=== PATIENT | female | born 1960 | race Caucasian/White ===

== ENCOUNTER → 2017-05-04 | Outpatient (CLI) | payer BC ==
[~2017-05-04] MED LIST: ARIMIDEX1 MG PO; CLARITIN10 M2 PO; FLAX SEED OIL1000 M1 PO; KELP1 TAB PO; MSM500 MG PO; NEXIUM PO; VITAMIN B122500 MCG
--- NOTE | ~2017-05-04 | US6 ---
[facility] A Service of [facility] & [facility] RADIOLOGY TEXT RESULTS PATIENT: FARZAD MCCLELLAN LOCATION: [facility] : 60 UNIT #: [id number] AGE: [address]: Jose Miguel sOorio MD SEX: F ORDER DR: [id number] [place], [place] [address] [id number] O MR#: [id number] Acc #: [id number] NAME: FARZAD MCCLELLAN : 1960 SEX: F STUDY DATE/TIME: 05/04/2017 10:42 UNIT: [facility] ROOM: STUDY DESCRIPTION: US Abdominal Limited Attending Physician: Jose Miguel Osorio M.D. Referring Physician: Jose Miguel Osorio M.D. Ordering Physician: Jose Miguel Osorio M.D. Primary Care Physician: Shayy Pedro M.D. MEDICAL IMAGING REPORT This report is preliminary unless electronic signature is present EXAM Right upper quadrant ultrasound, 05/04/2017 HISTORY Right upper quadrant abdominal pain intermittently for 2 months. FINDINGS The liver demonstrates an increase in echotexture with attenuation of the ultrasound beam characteristic of fatty infiltration. Focal fatty sparing is seen within the left lobe which is unchanged compared with 08/31/2016. The intra and extrahepatic bile ducts are not dilated. The gallbladder contains minimal sludge but there is no evidence of cholelithiasis, wall thickening or pericholecystic fluid. The common duct measures 3 mm. The pancreas and right kidney are normal. IMPRESSION 1. Fatty infiltration of the liver with focal fatty sparing in the left hepatic lobe unchanged compared with 08/31/2016. 2. Minimal gallbladder sludge. No evidence of cholelithiasis. Dictated by... Sampson Cervantes M.D. THIS IS AN ELECTRONICALLY VERIFIED REPORT Sampson Cervantes M.D. at 05/05/2017 2:18 PM GRACIELA/aditi TD: 05/04/2017 23:09 JOB #: [id number] MEDICAL IMAGING REPORT [facility] A Service of [facility] & [facility] RADIOLOGY TEXT RESULTS PATIENT: FARZAD MCCLELLAN LOCATION: [facility] #: [id number] : 60 UNIT #: [id number] AGE: [address]: Jose Miguel Osorio MD SEX: F ORDER DR: Page 1 of 1 COPY
[2017-05-04 10:31] LABS: HEMATOCRIT 40.3 % (35.0-45.0); HEMOGLOBIN 13.7 gm/dL (12.0-16.0); MEAN CELL VOLUME 84.9 FL (83-96); MEAN CORPUSCULAR HEMOGLOBIN 28.8 PG (28-34); MEAN CORPUSCULAR HGB CONC 33.9 g/dL (30-36); MEAN PLATELET VOLUME 8.9 FL (6.5-11.5); RED BLOOD COUNT 4.75 X10e (3.90-5.30); RED CELL DISTRIBUTION WIDTH 13.9 % (11.0-15.5); WHITE BLOOD COUNT 7.6 X10e3 (4.0-10.5)
[2017-05-04 10:49] LABS: ALBUMIN SERUM 4.1 g/dL (3.5-5.0); BILIRUBIN,TOTAL 0.9 mg/dL (0.2-2.0); BUN/CREATININE RATIO 13.33; CALCIUM SERUM 9.1 mg/dL (8.4-10.2); CREATININE SERUM 0.9 mg/dL (0.6-1.4); GLOM FILT RATE Estimated 71.5 mL/min (>60); POTASSIUM 3.9 mmol/L (3.5-5.1); PROTEIN TOTAL SERUM 6.9 g/dL (6.0-8.3)
== END | disposition home or self-care (01) ==
LOC: CGUS 10:01
PROVIDERS: Internal Medicine
DX: R10.11 Right upper quadrant pain (principal); R10.13 Epigastric pain; K76.0 Fatty (change of) liver, not elsewhere classified
CPT/HCPCS: 36415; 76705; 80053; 82150; 83690; 85027